=== PATIENT | male | born 1960 | race African-American/Black ===

== ENCOUNTER 2019-08-11 18:00 | Outpatient (CLI) | payer OTHER | END 2019-08-11 18:01 | disposition home or self-care (01) | LOC: SLEEPLAB 18:00 | PROVIDERS: ATTEND Internal Medicine | DX: G47.33 Obstructive sleep apnea (adult) (pediatric) (principal); R53.83 Other fatigue; R40.0 Somnolence; R51 Headache; K21.9 Gastro-esophageal reflux disease without esophagitis; R06.83 Snoring; E66.9 Obesity, unspecified; G47.00 Insomnia, unspecified; R35.1 Nocturia; Z68.30 Body mass index [BMI] 30.0-30.9, adult | CPT/HCPCS: 95806 ==